=== PATIENT | female | born 1960 | race Caucasian/White ===

== ENCOUNTER → 2017-11-10 10:53 | Outpatient (CLI) | payer BC, SELFPAY ==
[2017-11-10 14:13] LABS: Anion Gap 8.8 mmol/L (3-11); BUN 13 mg/dL (7-18); CO2 25.2 mmol/L (21.0-32.0); CREATININE 0.83 mg/dL (0.55-1.02); Calcium 8.4 mg/dL (8.5-10.1); Chloride 107 mmol/L (98-107); Glucose 77 mg/dL (70-100); Potassium 4.6 mmol/L (3.5-5.1); Sodium 141 mmol/L (136-145)
== END ==
PROVIDERS: PCP Family Medicine; Visit Provider Nurse Practitioner Adult Health
DX: I10 Essential (primary) hypertension (principal)
CPT/HCPCS: 36415; 80048

== ENCOUNTER 2017-12-10 10:01 | Outpatient (CLI) | payer BC, SELFPAY ==
[2017-12-10 13:45] LABS: Folate 8.8 ng/mL (8.6-20.0); Vitamin B12 178 pg/mL (193-986)
[2017-12-11 05:09] LABS: Vitamin D 25 Total 34.2 ng/ml (30-100)
== END 2017-12-10 10:21 ==
PROVIDERS: PCP Family Medicine; Visit Provider Internal Medicine
DX: K13.79 Other lesions of oral mucosa (principal); E83.51 Hypocalcemia
CPT/HCPCS: 36415; 82306; 82607; 82746

== ENCOUNTER 2017-12-10 11:56 | Outpatient (REF) | payer BC, SELFPAY | END 2017-12-10 12:16 | LOC: LBN 11:56 | PROVIDERS: PCP Family Medicine; Visit Provider Internal Medicine | DX: K13.79 Other lesions of oral mucosa (principal) | CPT/HCPCS: 87102 ==

== ENCOUNTER 2018-07-01 09:32 | Outpatient (CLI) | payer BC, SELFPAY ==
--- NOTE | 2018-07-01 10:04 | DI.RAD_ITS ---
SYMPTOM/DIAGNOSIS: PAIN, R52 LEFT SHOULDER: The bony structures are intact. The glenohumeral joint is normal. There are mild degenerative changes involving the AC joint. No soft tissue calcifications are evident. There is no evidence of a fracture or dislocation.
== END 2018-07-01 09:52 ==
PROVIDERS: PCP Family Medicine; Visit Provider Internal Medicine
DX: M25.512 Pain in left shoulder (principal); M19.012 Primary osteoarthritis, left shoulder
CPT/HCPCS: 73030

== ENCOUNTER 2020-09-13 03:43 | Outpatient (CLI) | payer BC, SELFPAY ==
[2020-09-13 10:06] LABS: Abs Immature Grans 0.02 10^3/uL (0.0-0.06); Absolute Basophil Count 0.05 10^3/uL (0.0-0.2); Absolute Eosinophil Count 0.12 10^3/uL (0.0-0.7); Absolute Monocyte Count 0.66 10^3/uL (0.1-0.8); Absolute Neutrophil Count 4.47 10^3/uL (1.2-6.7); Basophils % 0.8; Eosinophils % 1.8; HCT 40.1 % (36.0-46.0); Immature Grans % 0.3; Lymphocytes % 18.4; MCH 29.7 pg (27.0-33.0); MCHC 32.4 % (32.0-36.0); MCV 91.8 fL (80-95); MPV 10.3 fL (8.0-11.0); Monocytes % 10.1; Neutrophils % 68.6; Nucleated RBC 0 %; Platelet Count 220 10^3/uL (130-400); RBC 4.37 10^6/uL (3.93-5.22); RDW 12.2 % (11.7-14.6); RDW-SD 41.3 fL; WBC 6.52 10^3/uL (4.4-10.8)
[2020-09-13 11:25] LABS: ALT 26 U/L (14-59); AST 19 U/L (15-37); Albumin 3.7 g/dL (3.4-5.0); Alkaline Phosphatase 79 U/L (46-116); Anion Gap 9.3 mmol/L (3-11); BUN 13 mg/dL (7-18); Bilirubin, Total 0.6 mg/dL (0.2-1.0); CO2 26.7 mmol/L (21.0-32.0); CREATININE 0.8 mg/dL (0.55-1.02); Calcium 9.1 mg/dL (8.5-10.1); Chloride 107 mmol/L (98-107); Folate 12.8 ng/mL (8.6-20.0); Glucose 84 mg/dL (74-106); Potassium 4.3 mmol/L (3.5-5.1); Sodium 143 mmol/L (136-145); TSH (W/Ref FT4) 0.55 uIU/mL (0.36-3.74); Total Protein 6.6 g/dL (6.4-8.2); Vitamin B12 355 pg/mL (193-986)
[2020-09-19 10:58] LABS: 1,25-Dihydroxyvitamin D 42 pg/mL (18-78)
== END 2020-09-13 03:44 | disposition home or self-care (01) ==
LOC: LBO 03:43
PROVIDERS: PCP Nurse Practitioner; Visit Provider Nurse Practitioner
DX: I10 Essential (primary) hypertension (principal); R53.83 Other fatigue; M79.18 Myalgia, other site; E83.51 Hypocalcemia; F32.9 Major depressive disorder, single episode, unspecified
CPT/HCPCS: 36415; 80053; 82607; 82652; 82746; 84443; 85025

== ENCOUNTER 2020-10-27 09:48 | Outpatient (REF) | payer BC, SELFPAY ==
--- NOTE | 2020-10-27 09:30 | PAPFT_PTH ---
PATIENT: Stephany Nick LOC: [facility] U#:[id number] AGE/SX: 60/F ROOM: RE10/27/[address]: Rowan Jang, PhD COLLATOR HAND : 1960 BED: DIS: 10/27/2020 SPEC #: [id number] RECD: 10/27/20 13:06 STATUS: RONY REOtilia #: [id number] BINA: 10/27/20 09:[address]: Rowan Jang DEPT: [facility] Cytology RECD BY: Rena Shirley Tissues: 1 - CX/ENDOCX FOR PAP SMEARS Procedures: PAP THIN PREP/[facility] Screening HPV DNA PROBE Comments: [id number]
== END 2020-10-27 09:49 | disposition home or self-care (01) ==
LOC: LBN 09:48
PROVIDERS: PCP Nurse Practitioner; Visit Provider Nurse Practitioner
DX: Z12.4 Encounter for screening for malignant neoplasm of cervix (principal); Z11.51 Encounter for screening for human papillomavirus (HPV)
CPT/HCPCS: 88142; 87624

== ENCOUNTER 2021-02-16 16:12 | Outpatient (REF) | payer BC, SELFPAY ==
--- NOTE | 2021-02-16 15:37 | SKI_PTH ---
PATIENT: Stephany Nick LOC: [facility] U#:[id number] AGE/SX: 60/F ROOM: RE02/16/[address]: Leonidas Rodriguez DO : 1960 BED: DIS: 02/16/2021 SPEC #: [id number] RECD: 02/17/21 10:03 STATUS: RONY REQ #: [id number] BINA: 02/16/21 15:[address]: Leonidas Rodriguez DEPT: Surgical Specimen RECD BY: Radha Paulson ENTERED: 02/17/21 10:05 SP TYPE: JOANNA POSADA DR: Rowan Jang, PhD ACQUISITION MANAGER Tissues: 1 - SKIN BIOPSY(SHAVE/PUNCH) 2 - SKIN BIOPSY(SHAVE/PUNCH) Procedures: SKIN LEVEL 4 Comments: [id number]
== END 2021-02-16 16:13 | disposition home or self-care (01) ==
LOC: LBN 16:12
PROVIDERS: PCP Nurse Practitioner; Visit Provider Otolaryngology Otolaryngology/Facial Plastic Surgery
DX: L57.0 Actinic keratosis (principal); B07.9 Viral wart, unspecified
CPT/HCPCS: 88305

== ENCOUNTER 2021-03-02 03:14 | Outpatient (CLI) | payer BC, SELFPAY ==
[2021-03-02 10:25] LABS: Calculated LDL 155 mg/dL (<100); Cholesterol 237 mg/dL (<200); HDL Cholesterol 60 mg/dL (40-60); Triglyceride 112 mg/dL (<150)
[2021-03-03 23:43] LABS: Anaplasma phagocytophilum Negative (Negative); B. miyamotoi PCR Negative (Negative); Babesia divergens/MO-1 Negative (Negative); Babesia duncani Negative (Negative); Babesia microti Negative (Negative); Ehrlichia chaffeensis Negative (Negative); Ehrlichia ewingii/canis Negative (Negative); Ehrlichia muris eauclairensis Negative (Negative)
[2021-03-05 10:27] LABS: Lyme Ab w Rflx to Lyme Confirm Negative (Negative)
== END 2021-03-02 03:15 | disposition home or self-care (01) ==
LOC: LBO 03:14
PROVIDERS: PCP Nurse Practitioner; Visit Provider Nurse Practitioner
DX: R53.83 Other fatigue (principal); Z13.220 Encounter for screening for lipoid disorders
CPT/HCPCS: 36415; 80061; 87798; 86618

== ENCOUNTER 2022-02-20 03:44 | Outpatient (CLI) | payer BC, SELFPAY ==
[2022-02-20 12:59] LABS: CREATININE 0.9 mg/dL (0.55-1.02); Estimated GFR 72.73 (mL/min/1.73m2); Potassium 4.4 mmol/L (3.5-5.1)
== END 2022-02-20 03:45 | disposition home or self-care (01) ==
PROVIDERS: Visit Provider Nurse Practitioner Family
DX: I10 Essential (primary) hypertension (principal)
CPT/HCPCS: 36415; 82565; 84132

== ENCOUNTER 2022-03-08 01:29 | Outpatient (CLI) | payer BC, SELFPAY ==
[2022-03-08 13:08] LABS: Iron 79 ug/dL (50-170)
[2022-03-08 13:12] LABS: Calculated LDL 113 mg/dL (<100); Cholesterol 184 mg/dL (<200); Ferritin 77 ng/mL (8-252); HDL Cholesterol 56 mg/dL (40-60); Triglyceride 79 mg/dL (<150); Vitamin B12 382 pg/mL (193-986)
[2022-03-08 13:14] LABS: Vitamin D 25 Total 49.9 ng/mL (30-100)
== END 2022-03-08 01:30 | disposition home or self-care (01) ==
LOC: LBO 01:29
PROVIDERS: Visit Provider Physician Assistant
DX: E66.01 Morbid (severe) obesity due to excess calories (principal); Z98.84 Bariatric surgery status; Z68.33 Body mass index [BMI] 33.0-33.9, adult
CPT/HCPCS: 36415; 80061; 82306; 82607; 82728; 83540

== ENCOUNTER 2023-02-19 02:45 | Outpatient (CLI) | payer BC, SELFPAY ==
[2023-02-19 12:09] LABS: ALT 28 U/L (14-59); AST 24 U/L (15-37); Albumin 3.7 g/dL (3.4-5.0); Alkaline Phosphatase 74 U/L (46-116); BUN 14 mg/dL (7-18); Bilirubin, Total 0.4 mg/dL (0.2-1.0); Calcium 9.3 mg/dL (8.5-10.1); Calculated LDL 117 mg/dL (<100); Chloride 104 mmol/L (98-107); Cholesterol 201 mg/dL (<200); Glucose 79 mg/dL (74-106); HDL Cholesterol 64 mg/dL (40-60); Potassium 3.9 mmol/L (3.5-5.1); Sodium 143 mmol/L (136-145); Total Protein 7.1 g/dL (6.4-8.2); Triglyceride 100 mg/dL (<150)
== END 2023-02-19 02:46 | disposition home or self-care (01) ==
LOC: LBO 02:45
PROVIDERS: PCP Nurse Practitioner Adult Health; Visit Provider Nurse Practitioner Adult Health
DX: I10 Essential (primary) hypertension (principal); Z13.220 Encounter for screening for lipoid disorders
CPT/HCPCS: 36415; 80053; 80061

== ENCOUNTER 2023-10-07 15:52 | Outpatient (REF) | payer BC, SELFPAY ==
--- NOTE | 2023-10-07 13:45 | PAPFT_PTH ---
PATIENT: Stephany Nick LOC: [facility] U#:[id number] AGE/SX: 63/F ROOM: RE10/07/[address]: Beti Martinez NP : 1960 BED: DIS: 10/07/2023 SPEC #: [id number] RECD: 10/07/23 18:16 STATUS: RONY REQ #: [id number] BINA: 10/07/23 13:[address]: Beti Martinez NP DEPT: [facility] Cytology RECD BY: Rena Shirley ENTERED: 10/07/23 18:17 SP TYPE: PAPFT OTHR DR: Etta Angel APRN Tissues: 1 - CX/ENDOCX FOR PAP SMEARS Procedures: PAP THIN PREP/[facility] Screening HPV DNA PROBE Comments: [id number] (HPV 16 & 18/45)
== END 2023-10-07 15:53 | disposition home or self-care (01) ==
LOC: LBN 15:52
PROVIDERS: PCP Nurse Practitioner Adult Health; Visit Provider Nurse Practitioner Women's Health
DX: N95.2 Postmenopausal atrophic vaginitis (principal); Z12.72 Encounter for screening for malignant neoplasm of vagina; Z01.419 Encounter for gynecological examination (general) (routine) without abnormal findings
CPT/HCPCS: 88142; 87624

== ENCOUNTER 2023-12-05 16:12 | Outpatient (REF) | payer BC, SELFPAY ==
--- NOTE | 2023-12-05 13:55 | SKI_PTH ---
PATIENT: Stephany Nick LOC: [facility] U#:[id number] AGE/SX: 63/F ROOM: RE12/05/[address]: Leonidas Rodriguez DO : 1960 BED: DIS: 12/05/2023 SPEC #: [id number] RECD: 12/05/23 18:34 STATUS: RONY REQ #: [id number] BINA: 12/05/23 13:[address]: Leonidas Rodriguez DEPT: Surgical Specimen RECD BY: Rena Shirley ENTERED: 12/05/23 18:35 SP TYPE: SKI OT DR: Etta Angel APRN Tissues: 1 - SKIN BIOPSY(SHAVE/PUNCH) Procedures: SKIN LEVEL 4 Comments: [id number]
== END 2023-12-05 16:13 | disposition home or self-care (01) ==
LOC: LBN 16:12
PROVIDERS: PCP Nurse Practitioner Adult Health; Visit Provider Otolaryngology Otolaryngology/Facial Plastic Surgery
DX: Z12.83 Encounter for screening for malignant neoplasm of skin (principal); L82.1 Other seborrheic keratosis; L72.0 Epidermal cyst; L98.9 Disorder of the skin and subcutaneous tissue, unspecified; D49.2 Neoplasm of unspecified behavior of bone, soft tissue, and skin
CPT/HCPCS: 88305

== ENCOUNTER 2024-02-17 08:59 | Outpatient (CLI) | payer BC, SELFPAY ==
[2024-02-17 08:31] LABS: ALT 21 U/L (14-59); AST 15 U/L (15-37); Albumin 3.6 g/dL (3.4-5.0); Alkaline Phosphatase 75 U/L (46-116); Anion Gap 8.2 mmol/L (3-11); BUN 14 mg/dL (7-18); Bilirubin, Total 0.47 mg/dL (0.2-1.0); CO2 30.8 mmol/L (21.0-32.0); Calcium 8.9 mg/dL (8.5-10.1); Calculated LDL 116 mg/dL (<100); Chloride 107 mmol/L (98-107); Cholesterol 209 mg/dL (<200); Glucose 88 mg/dL (74-106); HDL Cholesterol 77 mg/dL (40-60); Potassium 3.8 mmol/L (3.5-5.1); Sodium 146 mmol/L (136-145); TSH (W/Ref FT4) 1.29 uIU/mL (0.36-3.74); Triglyceride 83 mg/dL (<150); Vitamin B12 203 pg/mL (193-986); Vitamin D 25 Total 47.7 ng/mL (30-100)
== END 2024-02-17 09:00 | disposition home or self-care (01) ==
LOC: LBO 09:00
PROVIDERS: PCP Nurse Practitioner Adult Health; Visit Provider Nurse Practitioner Adult Health
DX: F32.A Depression, unspecified (principal); I10 Essential (primary) hypertension; R53.83 Other fatigue
CPT/HCPCS: 36415; 80053; 80061; 82306; 82607; 82746; 84443

== ENCOUNTER 2024-03-01 01:17 | Outpatient (CLI) | payer BC, SELFPAY ==
--- NOTE | 2024-03-01 07:15 | DI.MAMMO_ITS ---
Exam(s) MAMMO SCREENING EXAM: MAMMO SCREENING CLINICAL HISTORY: screening,z12.39 TECHNIQUE: Bilateral full field digital CC and MLO mammographic images were obtained with 3D tomosyn thesis and utilizing computer aided detection (CAD). COMPARISON: Available for comparison. FINDINGS: Masses/Architectural Distortion: None seen. Microcalcifications: No suspicious pleomorphic-type are seen. Skin Thickening/Nipple Retraction: None. IMPRESSION: 1. No significant interval change with no specific features of malignancy noted. 2. Unless there is more urgent need, screening mammography is recommended, as per [employer] [place] [employer] guidelines. BI-RADS Category 1 - Negative Breast Density - Category B - Scattered areas of fibroglandular density Breast density category C or D implies that the patient has dense breast tissue. Dense breast tissue is very common and is not abnormal but dense breast tissue can make it harder to find cancer on a ma mmogram. Also, dense breast tissue may increase their breast cancer risk. This information about the result of the mammogram report was provided to the patient to raise their awareness. Use this report when you speak with the patient about their risks for breast cancer, which includes their family hist ory. At that time, you may recommend for more screening tests (Ultrasound or MRI) as they might be us eful based on their risk. A negative radiographic report should not delay biopsy if a dominant or clinically suspicious mass is present. Up to ten percent of cancers are not identified on mammography. A negative report may reinforce clinical impression. Adenosis and dense breasts may obscure an underlying neoplasm. False positive reports average 6 to 10%. Patient will receive a letter notifying them of these results.
--- NOTE | 2024-03-01 07:15 | DI.DEXA_ITS ---
Exam(s) XR DEXA BONE DENSITY W/WO ANN EXAM: XR DEXA BONE DENSITY W/WO ANN CLINICAL HISTORY: screening for osteoporosis in postmenopausal status, family h/o osteoporosi TECHNIQUE: COMPARISON: DX DEXA BONE DENSITY WITH ANN from 11/06/2009 FINDINGS: Lateral Spine Image: Unremarkable. No compression deformities identified. Left hip: Total T-Score: -1.3. This compares to 0.1 on the prior examination. Total Z-Score: -0.1 T- and Z-scores: Findings are consistent with osteopenia. Lumbar Spine: Total T-Score: -0.9. This compares to 0.4 on the prior examination. Total Z-Score: 0.8 T- and Z-scores: Within normal limits. Note is made of osteoporosis in the left forearm with a T-score of -2.6. IMPRESSION: 1. No evidence of osteoporosis in the left hip or lumbar spine. 2. Findings of osteoporosis in the left forearm.
== END 2024-03-01 01:37 ==
LOC: DI 01:17
PROVIDERS: PCP Nurse Practitioner Adult Health; Visit Provider Nurse Practitioner Adult Health
DX: Z78.0 Asymptomatic menopausal state (principal); Z82.62 Family history of osteoporosis; Z12.31 Encounter for screening mammogram for malignant neoplasm of breast; Z13.820 Encounter for screening for osteoporosis
CPT/HCPCS: 77063; 77067; 77080

== ENCOUNTER 2024-11-17 14:49 | Outpatient (CLI) | payer BC, SELFPAY ==
--- NOTE | 2024-11-17 06:15 | DI.MRI_ITS ---
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 COMPARISON: No exams were available for comparison FINDINGS: VENTRICLES AND EXTRA AXIAL SPACES: Normal in size and morphology for the patient's age. MIDLINE SHIFT: None. CEREBRAL PARENCHYMA: No focus of restricted diffusion to suggest acute infarct. No space-occupying lesion identified. Mild atrophy consistent with the patient's age. Mild scattered foci of high signal in the white matter consistent with sequela of chronic microvascular disease. BRAINSTEM/CEREBELLUM: Normal. VISUALIZED PARANASAL SINUSES: Clear. MASTOIDS:Clear. Vasculature: Normal flow void. PITUITARY GLAND: Unremarkable. ORBITS: Unremarkable. IMPRESSION: Unremarkable MRI of the brain. DATA REPOSITORY:
== END 2024-11-17 15:09 ==
LOC: DI 14:49
PROVIDERS: PCP Nurse Practitioner Adult Health; Visit Provider Nurse Practitioner Adult Health
DX: R51.9 Headache, unspecified (principal); H53.413 Scotoma involving central area, bilateral
CPT/HCPCS: 70551

== ENCOUNTER 2025-03-02 15:26 | Outpatient (CLI) | payer BC, SELFPAY ==
[2025-03-02 15:42] LABS: Abs Immature Grans 0.02 10^3/uL (0.0-0.06); HCT 42.5 % (36.0-46.0); HGB 14.1 g/dL (11.2-15.7); Immature Grans % 0.3 %; MCH 30.0 pg (27.0-33.0); MCHC 33.2 % (32.0-36.0); MCV 90 fL (80-95); MPV 9.2 fL (8.0-11.0); Platelet Count 266 10^3/uL (130-400); RBC 4.70 10^6/uL (3.93-5.22); RDW 12.7 % (11.7-14.6); RDW-SD 42.2 fL; WBC 6.09 10^3/uL (4.4-10.8)
[2025-03-02 15:58] LABS: Magnesium 1.8 mg/dL (1.6-2.6)
[2025-03-02 16:02] LABS: TSH (W/Ref FT4) 0.60 uIU/mL (0.55-4.78)
[2025-03-02 16:13] LABS: ALT 13 U/L (10-49); AST 21 U/L (<34); Albumin 4.6 g/dL (3.2-5.0); Alkaline Phosphatase 85 U/L (46-116); Anion Gap 10.4 mmol/L (3-11); BUN 11 mg/dL (9-23); Bilirubin, Total 0.7 mg/dL (0.2-1.2); CO2 26.6 mmol/L (20.0-31.0); Calcium 9.2 mg/dL (8.3-10.6); Chloride 101 mmol/L (98-107); Cholesterol 220 mg/dL (<200); Folate 23.1 ng/mL (>5.38); Glucose 79 mg/dL (74-106); HDL Cholesterol 69 mg/dL (>or=50); Potassium 3.5 mmol/L (3.5-5.1); Sodium 138 mmol/L (136-145); Total Protein 7.7 g/dL (5.7-8.2); Vitamin B12 328 pg/mL (211-911)
== END 2025-03-02 15:27 | disposition home or self-care (01) ==
LOC: LBO 15:26
PROVIDERS: PCP Nurse Practitioner Adult Health; Visit Provider Nurse Practitioner Adult Health
DX: R53.83 Other fatigue (principal); Z13.220 Encounter for screening for lipoid disorders
CPT/HCPCS: 36415; 80053; 80061; 82607; 82746; 83735; 84443; 85025

== ENCOUNTER → 2025-03-02 | Outpatient (CLI) | payer BC, SELFPAY ==
--- NOTE | 2025-03-02 15:00 | DI.MAMMO_ITS ---
Exam(s) MAMMO SCREENING EXAM: MAMMO SCREENING CLINICAL HISTORY: screening TECHNIQUE: Mammograms were interpreted according to the usual protocol including computer analysis with CAD system, tomosynthesis and C-view imaging. COMPARISON: 2018 through 2023 FINDINGS: The breasts are composed of scattered fibroglandular densities, Breast Density category B. No suspicious masses or suspicious microcalcifications are seen. No skin thickening or abnormal axillary lymph nodes are seen. There has been no significant change from prior exams. IMPRESSION: BI-RADS Category 1, Negative mammogram Yearly screening mammography is recommended. Breast Density - Category B - There are scattered areas of fibroglandular density. Breast density Category C or D implies that the patient has dense breast tissue. Dense breast tissue can make it harder to find cancer on a mammogram. Dense breast tissue is also associated with an increased risk of breast cancer. This information about the result of the mammogram report was provided to the patient to raise their awareness. Use this report when you speak with the patient about their risks for breast cancer, which includes their family history. At that time, you may recommend additional screening tests (Ultrasound or MRI) as these tests may add significant information. A negative radiographic report should not delay biopsy if a dominant or clinically suspicious mass is present. Up to ten percent of cancers are not identified on mammography. A negative report may reinforce clinical impression. Adenosis and dense breasts may obscure an underlying neoplasm. False positive reports average 6 to 10%. Patient will receive a letter notifying them of these results.
== END ==
PROVIDERS: PCP Nurse Practitioner Adult Health; Visit Provider Nurse Practitioner Women's Health
DX: Z12.31 Encounter for screening mammogram for malignant neoplasm of breast (principal); R92.323 Mammographic fibroglandular density, bilateral breasts
CPT/HCPCS: 77063; 77067